=== PATIENT | female | born 1995 ===

== ENCOUNTER 2025-05-28 19:07 | Inpatient (IN) | payer OTHER ==
[2025-05-28] VITALS (24 sets, daily range): BP systolic 92–133; BP diastolic 51–93
[~2025-05-28] VITALS: Ht 137.2 cm; Wt 61.3 kg
[2025-05-28] MEDS ORDERED: FentaNYL 2mcg/ml-Bup 0.1% Epd 250 ML EPI PRN (19:40)
[2025-05-28] MEDS ORDERED: Oxytocin 10 Unit / ML Vial IM PRN (19:40)
[2025-05-28] MEDS ORDERED: Tranexamic Acid 100 ML IV SCH (19:40)
[2025-05-28] MEDS ORDERED: Methylergonovine Maleate 0.2MG / ML 1ML Amp IM PRN (19:40)
[2025-05-28] MEDS ORDERED: FentaNYL Citrate 50 MCG/ML 2 ML Injection IV PRN (19:40)
[2025-05-28] MEDS ORDERED: Carboprost Tromethamine 250 MCG/ML 1ML Amp IM PRN (19:40)
[2025-05-28] MEDS ORDERED: ePHEDrine Sulfate 50 MG/ML 1ML Injection XX PRN (19:40)
[2025-05-28] MEDS ORDERED: Ondansetron HCl 2 MG / ML 2ML Vial IV PRN (19:40)
[2025-05-28] MEDS ORDERED: OXYTOCIN/RINGER'S LACTATE 500 ML IV PRN (19:40)
[2025-05-28 20:01] LABS: BASOPHILS ABSOLUTE AUTO 0.01 K/mm3 (0.00-0.23); BASOPHILS PERCENT AUTO 0 % (0-2); EOSINOPHILS ABSOLUTE AUTO 0.01 K/mm3 (0.00-0.68); EOSINOPHILS PERCENT AUTO 0 % (0-6); Hematocrit 37.8 % (33.0-51.0); Hemoglobin 13.4 g/dL (11.5-16.0); IMMATURE GRAN ABSOLUTE AUTO 0.03 K/mm3 (0.00-0.10); IMMATURE GRAN PERCENT AUTO 0 % (0-1); LYMPHOCYTES ABSOLUTE AUTO 2.17 K/mm3 (0.84-5.20); LYMPHOCYTES PERCENT AUTO 27 % (21-46); MONOCYTES ABSOLUTE AUTO 0.45 K/mm3 (0.16-1.47); MONOCYTES PERCENT AUTO 6 % (4-13); Mean Corpuscular HGB Conc 35.4 g/dL (31.5-36.5); Mean Corpuscular Volume 90 fL (80-100); NEUTROPHILS ABSOLUTE AUTO 5.51 K/mm3 (1.96-9.15); NEUTROPHILS PERCENT AUTO 67 % (41-73); NRBC ABSOLUTE 0.00 K/mm3 (0.00-0.02); NRBC Auto 0.0 /100 WBC (0.0-0.2); Platelet Count 174 K/mm3 (150-400); RDW Coefficient Variation 13.8 % (11.7-14.2); RDW Standard Deviation 45.0 fL (35.1-46.3)
[2025-05-28] MEDS ORDERED: FentaNYL Citrate 50 MCG/ML 2 ML Injection ONE (20:18)
[2025-05-28] MEDS ORDERED: PRENATAL TABLE1 EAC2 PO (20:26)
[2025-05-29] VITALS (26 sets, daily range): BP systolic 84–138; BP diastolic 50–88
[2025-05-29] MEDS ORDERED: CeFAZolin Sodium 2,000 MG in NS 100 ML IV SCH (11:45)
[2025-05-29] MEDS ORDERED: FentaNYL Citrate 50 MCG/ML 2 ML Injection ONE (12:27)
[2025-05-29] MEDS ORDERED: Ondansetron HCl 2 MG / ML 2ML Vial ONE (12:30)
[2025-05-29] MEDS ORDERED: Dexamethasone Sod Phos 10 MG/ML 1ML VIAL ONE (12:30)
[2025-05-29] MEDS ORDERED: Oxytocin 10 Unit / ML Vial ONE (12:46)
--- NOTE | 2025-05-29 13:02 | NUR ---
05/29/25 1302 Aileen Crockett PATIENT INTO OR AT 1224, HEART TONES DOPPLERED IN THE 117'S. ARRIVED IN OR WITH CATHETER IN PLACE
[2025-05-29] MEDS ORDERED: Ketorolac Tromethamine 30mg Vial ONE (13:06)
[2025-05-29] MEDS ORDERED: Lidocaine HCl 2% 10 ML SDA ONE (13:06)
[2025-05-29 13:07] LABS: PCO2 Cord - Arterial 78.9 mmHg (40-50); PO2 Cord - Arterial < 12.0 mmHg (16-20); pH Cord - Arterial 7.09 (7.28-7.35)
[2025-05-29 13:09] LABS: PCO2 Cord - Venous 59.7 mmHg (40-50); PO2 Cord - Venous 24.0 mmHg (28-32); pH Umbilical Cord - Venous 7.21 (7.26-7.35)
[2025-05-29] MEDS ORDERED: Tranexamic Acid 100 ML IV ONE (13:17)
[2025-05-29] MEDS ORDERED: Magnesium Hydroxide Conc 10 ML UDC PO PRN (13:35)
[2025-05-29] MEDS ORDERED: Ketorolac Tromethamine 30mg Vial IV SCH ×2 (14:00)
[2025-05-29] MEDS ORDERED: Ketorolac Tromethamine 30mg Vial IV PRN (20:30)
[2025-05-30] VITALS (10 sets, daily range): BP systolic 95–115; BP diastolic 53–70
[2025-05-30 07:10] LABS: BASOPHILS ABSOLUTE AUTO 0.02 K/mm3 (0.00-0.23); BASOPHILS PERCENT AUTO 0 % (0-2); EOSINOPHILS ABSOLUTE AUTO 0.00 K/mm3 (0.00-0.68); EOSINOPHILS PERCENT AUTO 0 % (0-6); Hematocrit 27.9 % (33.0-51.0); Hemoglobin 9.8 g/dL (11.5-16.0); IMMATURE GRAN ABSOLUTE AUTO 0.04 K/mm3 (0.00-0.10); IMMATURE GRAN PERCENT AUTO 0 % (0-1); LYMPHOCYTES ABSOLUTE AUTO 2.58 K/mm3 (0.84-5.20); LYMPHOCYTES PERCENT AUTO 21 % (21-46); MONOCYTES ABSOLUTE AUTO 0.84 K/mm3 (0.16-1.47); MONOCYTES PERCENT AUTO 7 % (4-13); Mean Corpuscular HGB Conc 35.1 g/dL (31.5-36.5); Mean Corpuscular Volume 92 fL (80-100); NEUTROPHILS ABSOLUTE AUTO 8.77 K/mm3 (1.96-9.15); NEUTROPHILS PERCENT AUTO 72 % (41-73); NRBC ABSOLUTE 0.00 K/mm3 (0.00-0.02); NRBC Auto 0.0 /100 WBC (0.0-0.2); Platelet Count 140 K/mm3 (150-400); RDW Coefficient Variation 14.2 % (11.7-14.2); RDW Standard Deviation 47.4 fL (35.1-46.3)
[2025-05-30] MEDS ORDERED: Prenatal Vit/FE Fumarate/FA 1 Tab PO SCH (09:00)
--- NOTE | 2025-05-30 12:08 | NUR ---
RESTING WITH NB IN ARMS. PAIN 310. NO QUESTIONS OR CONCERNS AT THIS TIME.
--- NOTE | 2025-05-30 15:14 | NUR ---
ASSUMED CARE FROM JUAN CARLOS CELESTIN AT 1500.
--- NOTE | 2025-05-30 20:13 | NUR ---
Assumed care at change of shift, patient was up in bathroom and c/o dizziness upon returning, BP WNL, pt reports headache and blurred vision. mobile home mechanic informed and in to assess, BP remains WNL, fundus firm and low, reports dizziness slightly improved since being in bed. mobile home mechanic asked patient to call before getting up again and call if dizziness returns or does not improve. Patient resting in bed at this time, utilizes assistance from partner to get positioned in bed. Denies pain or discomfort at this time. Explained plan for the night, patient understands and agrees with plan of care.
[2025-05-31 03:51] VITALS: BP 106/74
[2025-05-31 07:54] VITALS: BP 121/73
--- NOTE | 2025-05-31 09:23 | NUR ---
assumed care, brayden sliver chopper here D/C instructions done, Claudia here, all instructions on baby and mom done with sliver chopper
[2025-05-31 10:09] VITALS: BP 130/63
== END 2025-05-31 10:40 | disposition home or self-care (01) | DRG 788 ==
LOC: OBS 19:07 → BC 19:10 → OBS 19:35 → BC 19:36
PROVIDERS: Family Medicine; ADMIT Registered Nurse Community Health
PROC: 4A1HXCZ Monitoring of Products of Conception, Cardiac Rate, External Approach (ICD-10-PCS; 2025-05-28)
PROC: 10907ZC Drainage of Amniotic Fluid, Therapeutic from Products of Conception, Via Natural or Artificial Opening (ICD-10-PCS; 2025-05-28)
PROC: 10D00Z1 Extraction of Products of Conception, Low, Open Approach (ICD-10-PCS; principal; 2025-05-29 14:00)
DX: O65.4 Obstructed labor due to fetopelvic disproportion, unspecified (principal); Z3A.39 39 weeks gestation of pregnancy; Z37.0 Single live birth; O62.1 Secondary uterine inertia; N80.00 Endometriosis of the uterus, unspecified; O99.892 Other specified diseases and conditions complicating childbirth
CPT/HCPCS: 36415; 51702; 59025; 82803; 85025; 86850; 86900; 86901; 99214; 99465; A9270; J1100; J1885; J2003; J2405; J2590; J3010; J7120